=== PATIENT | female | born 1970 | race Caucasian/White ===

== ENCOUNTER 2024-06-04 06:03 | Day surgery (SDC) | payer BC ==
[2024-05-30 11:38] VITALS: BMI 25.9
[2024-06-04] MEDS ORDERED: BUPIVACAINE HCL/PF 0.25% (2.5MG/ML) 10 ML VIAL ONE (08:35)
[2024-06-04] MEDS ORDERED: MIDAZOLAM HCL 2 MG/2 ML SINGLE DOSE VIAL ONE (09:34)
[2024-06-04] MEDS ORDERED: PROPOFOL 40 ML ONE (09:34)
[2024-06-04] MEDS ORDERED: DEXAMETHASONE SOD PHOSPHATE 4 MG/1 ML VIAL ONE (09:35)
[2024-06-04] MEDS ORDERED: ONDANSETRON 4 MG/2 ML VIAL ONE (09:35)
[2024-06-04] MEDS ORDERED: SUCCINYLCHOLINE CHLORIDE 200 MG/10 ML SYRINGE ONE (09:35)
[2024-06-04] MEDS ORDERED: KETOROLAC TROMETHAMINE 30 MG/1 ML VIAL ONE (09:35)
[2024-06-04] MEDS: ceFAZolin SODIUM 1 GM VIAL IVPB ONE ×2 (10:00)
[2024-06-04] MEDS ORDERED: ceFAZolin SODIUM 1 GM VIAL ONE (10:07)
[2024-06-04] MEDS: BUPIVACAINE HCL/PF 0.25% (2.5MG/ML) 10 ML VIAL IJ ONE ×2 (10:07)
[2024-06-04 10:53] VITALS: RESP 18
[2024-06-04 12:43] VITALS: BP 119/71; PULSE 56; TEMP 97.8
== END 2024-06-04 12:43 | disposition home or self-care (01) ==
LOC: JASU-SURG 06:03
PROVIDERS: ATTEND Surgery
PROC: 0JB70ZZ Excision of Back Subcutaneous Tissue and Fascia, Open Approach (ICD-10-PCS; principal; 2024-06-04 09:00)
DX: D17.1 Benign lipomatous neoplasm of skin and subcutaneous tissue of trunk (principal)
CPT/HCPCS: 81025; 88304-TC